=== PATIENT | male | born 1960 | race Caucasian/White ===

== ENCOUNTER 2016-04-16 12:53 | Emergency (ER) | payer BC ==
--- NOTE | 2016-04-16 13:00 | ER Document Report ---
ED Medical Screen (RME) - General Stated Complaint: FLU LIKE SYMPTOMS Mode of Arrival: Ambulatory Information source: Patient Notes: Pt presents with flu like symptoms, fever, vomiting. Reports same symptoms Tuesday and Tuesday, went away, returned today. Had flu vaccine. Works here at [employer] [employer] [facility]. - Related Data Allergies/Adverse Reactions: No Known Allergies Allergy (Verified 06/01/12 18:33) Past Medical History - Immunizations Immunizations up to date: Yes Hx Diphtheria, Pertussis, Tetanus Vaccination: Yes - pt does not know date
[2016-04-16 13:33] LABS: ABSOLUTE LYMPHOCYTES (AUTO) 0.8 10^3/uL (0.5-4.7); BASOPHILS % (AUTO) 0.2 % (0-2); EOSINOPHILS % (AUTO) 0.2 % (0-6); HEMATOCRIT 45.4 % (37.9-51.0); HEMOGLOBIN 14.6 g/dL (13.5-17.0); HGB HCT DIFFERENCE -1.6; LYMPHOCYTES % (AUTO) 7.7 % (13-45); MEAN CORPUSCULAR HEMOGLOBIN 30.8 pg (27.0-33.4); MEAN CORPUSCULAR HGB CONC 32.2 g/dL (32.0-36.0); MEAN CORPUSCULAR VOLUME 95 fl (80-97); MONOCYTES % (AUTO) 10.3 % (3-13); RED BLOOD COUNT 4.76 10^6/uL (4.35-5.55); RED CELL DISTRIBUTION WIDTH 13.3 % (11.5-14.0); SEGMENTED NEUTROPHILS % (AUTO) 81.6 % (42-78); WHITE BLOOD COUNT 9.8 10^3/uL (4.0-10.5)
[2016-04-16 13:39] LABS: APPEARANCE,URINE CLEAR; BILIRUBIN,URINE NEGATIVE (NEGATIVE); GLUCOSE, URINE NEGATIVE (NEGATIVE); KETONES,URINE NEGATIVE (NEGATIVE); LEUKOCYTE ESTERASE,URINE NEGATIVE (NEGATIVE); NITRITE,URINE NEGATIVE (NEGATIVE); PROTEIN,URINE NEGATIVE (NEGATIVE); URINE SPECIFIC GRAVITY 1.021; UROBILINOGEN,URINE NEGATIVE mg/dL (<2.0)
[2016-04-16 13:46] LABS: ALANINE AMINOTRANSFERASE 59 U/L (21-72); ALBUMIN 4.1 g/dL (3.5-5.0); ALKALINE PHOSPHATASE 69 U/L (38-126); ANION GAP 13 (5-19); ASPARTATE AMINO TRANSFERASE 55 U/L (17-59); BILIRUBIN,TOTAL 0.3 mg/dL (0.2-1.3); BLOOD UREA NITROGEN 13 mg/dL (7-20); CALCIUM 9.1 mg/dL (8.4-10.2); CARBON DIOXIDE 28 mmol/L (22-30); CHLORIDE 100 mmol/L (98-107); CREATININE RESULT 0.93 mg/dL (0.52-1.25); GLUCOSE 110 mg/dL (75-110); POTASSIUM 4.1 mmol/L (3.6-5.0); TOTAL PROTEIN 6.9 g/dL (6.3-8.2)
[2016-04-16] MEDS ORDERED: ONDANSETRON 4 MG TAB.RAPDIS PO ONE (14:14)
[2016-04-16 14:18] VITALS: BP 121/73
--- NOTE | 2016-04-16 14:21 | ER Document Report ---
[id number] SYMPTOMS Mode of Arrival: Ambulatory Notes: The patient is a 55-year-old male who presents with 2 weeks of intermittent fatigue, muscle aches and fever and 1 day of nausea. He received his flu shot this year. 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 He denies abdominal pain, vomiting, shortness of breath, chest pain, urinary symptoms or recent travel. TRAVEL OUTSIDE OF THE [place] IN LAST 30 DAYS: No - Related Data Allergies/Adverse Reactions: No Known Allergies Allergy (Verified 04/16/16 13:00) Past Medical History - General Information source: Patient - Social History Smoking Status: Never Smoker Chew tobacco use (# tins/day): No Frequency of alcohol use: Social Drug Abuse: None Family History: Reviewed & Not Pertinent Patient has suicidal ideation: No Patient has homicidal ideation: No Renal/ Medical History: Denies: Hx Peritoneal Dialysis - Immunizations Immunizations up to date: Yes Hx Diphtheria, Pertussis, Tetanus Vaccination: Yes - pt does not know date Review of Systems - Review of Systems Notes: REVIEW OF SYSTEMS: CONSTITUTIONAL: +fevers, +chills EENT: -eye pain, -difficulty swallowing, -nasal congestion CARDIOVASCULAR: -chest pain, -syncope. RESPIRATORY: +cough, +SOB GASTROINTESTINAL: -abdominal pain, +nausea, -vomiting, -diarrhea GENITOURINARY: -dysuria, -hematuria MUSCULOSKELETAL: -back pain, -neck pain SKIN: -rash or skin lesions. HEMATOLOGIC: -easy bruising or bleeding. LYMPHATIC: -swollen, enlarged glands. NEUROLOGICAL: -altered mental status or loss of consciousness, -headache, - neurologic symptoms PSYCHIATRIC: -anxiety, -depression. ALL OTHER SYSTEMS REVIEWED AND NEGATIVE. Physical Exam - Vital signs Vitals: Temp Pulse Resp Pulse Ox 99.5 F 98 18 95 04/16/16 13:55 04/16/16 13:55 04/16/16 13:55 04/16/16 13:55 - Notes Notes: PHYSICAL EXAMINATION: GENERAL: Well-appearing, well-nourished and in no acute distress. HEAD: Atraumatic, normocephalic. EYES: Pupils equal round and reactive to light, extraocular movements intact, sclera anicteric, conjunctiva are normal. ENT: nares patent, oropharynx clear without exudates. Moist mucous membranes. NECK: Normal range of motion, supple without lymphadenopathy LUNGS: Breath sounds clear to auscultation bilaterally and equal. No wheezes rales or rhonchi. HEART: Regular rate and rhythm without murmurs ABDOMEN: Soft, nontender, normoactive bowel sounds. No guarding, no rebound. No masses appreciated. EXTREMITIES: Normal range of motion, no pitting or edema. No cyanosis. NEUROLOGICAL: Cranial nerves grossly intact. Normal speech, normal gait. Normal sensory, motor, and reflex exams. PSYCH: Normal mood, normal affect. SKIN: Warm, Dry, normal turgor, no rashes or lesions noted. Course - Re-evaluation Re-evalutation: Patient's labs and vital signs appear unremarkable other than positive flu B. After Zofran, patient is tolerating liquid. Instructed patient to remain hydrated and follow-up with his primary care physician. Given strict return precautions and he understands. - Vital Signs Vital signs: Temp Pulse Resp BP Pulse Ox 99.5 F 88 18 121/73 97 04/16/16 14:15 04/16/16 14:15 04/16/16 13:55 04/16/16 14:15 04/16/16 14:15 - Laboratory Result Diagrams: 04/16/16 13:05 04/16/16 13:05 Laboratory results interpreted by me: 04/16/16 13:05 Seg Neutrophils % 81.6 H Lymphocytes % 7.7 L - Diagnostic Test Radiology reviewed: Image reviewed, Reports reviewed Radiology results interpreted by me: SYL Discharge - Discharge Clinical Impression: Influenza B Condition: Good Disposition: HOME, SELF-CARE Additional Instructions: INFLUENZA: The physician feels that you have influenza -- the "flu". Influenza is an infection caused by a virus. Symptoms include generalized aching, fever, headache, dry cough, and fatigue. Some patients with the flu also have nausea, vomiting, and diarrhea. The fever and aches usually last two to four days, with the cough persisting another one to two weeks. Treatment of the flu, for the most part, is simply treatment of symptoms. Rest, drink plenty of fluids, and use acetaminophen for fever and aches. Do not take aspirin. There is an anti-viral medication, called Tamiflu, which may help in "type A" flu, but it's not helpful in every case of flu, and only works if started within the first 24 - 48 hours of the start of symptoms. The physician will determine whether this medication can help you. To prevent spread of the virus, use good handwashing. Shared toys should be cleaned with disinfectant. Clean the toilets, sinks, and counter surfaces in bathrooms. Launder clothing in hot water. What are conditions that should receive medical attention? The development of difficulty breathing. Lip color changes to blue or purple. Persistent vomiting and unable to keep liquids down with signs of dehydration such as: dizziness when standing, unable to urinate, or if child/infant is crying no tears are noticed. Is less responsive than normal or becomes confused. How do I decrease the spread of flu in my home? Taking care of the sick patient at home: Keep the sick person in a room separate from the common areas of the house. Keep the "sickroom" door closed. If the person with the flu needs to leave the home, they should cover their nose/mouth when coughing or sneezing and wear a disposable (surgical) mask if available. These masks may be available at your local pharmacy, medical supply and hardware store. If the sick person is in common areas of the house, have them wear a surgical mask. If possible, have the sick person use a separate bathroom that should be cleaned daily with a household disinfectant. If you are the caregiver: Avoid being face to face with the sick adult person as much as possible. Try to stay at least 6 feet away and wear a disposable surgical mask when possible. When holding small children who are sick, place their chin on your shoulder so that they will not cough in your face. Wash your hands after you touch the sick person or handle their tissues and laundry. Wear a mask if you leave home, as you may be infected from taking care of someone and not know it yet. Watch yourself and others in the home for flu symptoms and contact your doctor if symptoms occur. NOTE: Antiviral medication used to reduce the symptoms of the flu works only if taken within 48 hours, and best within 24 hours of symptom onset. Household Cleaning, laundry and waste disposal: Tissues and other disposable items used by the sick person should be thrown away in the trash. Wash your hands after touching these used items. No special waste disposal is required. Keep surfaces (especially bedside tables, bathroom surfaces, and toys for children) clean by wiping them down with a safe household disinfectant according to the directions on the product label. Per Center for Disease Control advice, most people will not receive testing to confirm flu. Also based on the person's health history and onset of symptoms, not all patients will receive prescriptions for antiviral medications. If you have questions related to this, please ask your healthcare provider. For more information, you can call the Centers for Disease Control and Prevention ([facility]) Hotline at 5-318-WCZVputi This line is available in Beninese and Thai, 24 hours a day, 7 days a week. Or wwwP[employer] or www.cdc.gov Flu-Like Illness Home Instructions: The influenza virus infection can cause a wide rage of symptoms, including: Fever, cough, sore throat, body aches, headaches, chills, fatigue, with some patients reporting diarrhea and vomiting Like seasonal influenza A, H1N1 ("swine flu")in humans can vary in severity from mild to severe Severe illness with pneumonia, respiratory failure and even is possible Certain groups might be more likely to develop a severe illness from H1N1 infection. Sometimes bacterial infections may occur at the same time as or after infection with influenza viruses and lead to pneumonias, ear infections, or sinus infections. How Flu Spreads The main way that influenza viruses spread is through respiratory droplets of coughs and sneezes. This can happen when someone with the infection coughs or sneezes and the particles fly through the air and land on other people and surfaces. If the person covers their mouth and nose with their hand but does not wash their hands immediately, then these germs are passed onto the next object that they touch. People with Influenza A or suspected H1N1 (swine flu) who are cared for at home should: Check with their doctor about any special care that they might need if they are or have a health condition such as diabetes, heart disease, asthma or emphysema. Also, limit caregiver to one (if possible). women or those with chronic health conditions should not take care of the flu patient unless necessary. Check with their doctor about whether or not medications are needed that may lessen the symptoms of the flu. Stay at home until 24 hours fever free without the use of fever reducing medication. Get plenty of rest and avoid other healthy people in your home. Drink plenty of clear liquids to keep from getting dehydrated. Take medications like Tylenol (Acetaminophen), Advil/Motrin/Nuprin ( Ibuprofen) or Aleve (Naproxen) for fevers and aches. All children under the age of 18 years of age should not take aspirin or products containing aspirin (e.g. Pepto Bismol), as this can cause a rare serious illness called Yvan Syndrome. Over the counter medications for flu and colds may help, but it is very important to follow the package directions. Remember that the medicine may help the symptoms, but it will not help prevent others from getting sick if they are around you. Cover coughs and sneezes using your bent arm. Clean hands with soap and water or an alcohol-based hand rub often, especially after using tissues to cough or sneeze. Encourage hand washing frequently for all people living in the home! The sick person should not have visitors other than caregivers. Encourage concerned loved ones to call instead of visit. Avoid close contact with others-do not go to work or school while sick. USE OF ACETAMINOPHEN (Tylenol): Acetaminophen may be taken for pain relief or fever control. It's much safer than aspirin, offering a wider range of "safe" dosages. It is safe during . Some brand names are Tylenol, Panadol, Datril, Anacin 3, Tempra, and Liquiprin. Acetaminophen can be repeated every four hours. The following are maximum recommended dosages: WEIGHT Dose Drops Elixir Chewable( 80mg) (LBS.) drprs=droppers tsp=teaspoon 6 40 mg 0.4 ml (1/2) 6-11 80 mg 0.8 ml (full) tsp 1 tab 12-16 120 mg 1 1/2 drprs 3/4 tsp 1 1/2 tabs 17-23 160 mg 2 drprs 1 tsp 2 tabs 24-30 240 mg 3 drprs 1 1/2 tsp 3 tabs 30-35 320 mg 2 tsp 4 tabs 36-41 360 mg 2 1/4 tsp 4 1/2 tabs 42-47 400 mg 2 1/2 tsp 5 tabs 48-53 480 mg 3 tsp 6 tabs 54-59 520 mg 3 1/4 tsp 6 1/2 tabs 60-64 560 mg 3 1/2 tsp 7 tabs 65-70 600 mg 3 3/4 tsp 7 1/2 tabs 71-76 640 mg 4 tsp 8 tabs 77-82 720 mg 4 1/2 tsp 9 tabs 83-88 800 mg 5 tsp 10 tabs >89 pounds or adults 650 mg to 900 mg Acetaminophen can be repeated every four hours. Maximum dose not to exceed 4000 mg a day. These maximum recommended dosages are slightly higher than the dosages written on the product container, but these dosages are very safe and below the toxic dosage for acetaminophen. FOLLOW-UP CARE: If you have been referred to a physician for follow-up care, call the physician s office for an appointment as you were instructed or within the next two days. If you experience worsening or a significant change in your symptoms, notify the physician immediately or return to the Emergency Department at any time for re-evaluation. Prescriptions: Ondansetron [Zofran Odt 4 mg Tablet] 1 - 2 tab PO Q4H PRN #15 tab.rapdis PRN Reason: For Nausea/Vomiting Forms: Return to Work
== END 2016-04-16 14:45 | disposition home or self-care (01) ==
LOC: ER 12:53
DX: J11.1 Influenza due to unidentified influenza virus with other respiratory manifestations (principal); R53.83 Other fatigue; R52 Pain, unspecified; R50.9 Fever, unspecified
CPT/HCPCS: 99283; 36415; 85025; 80053; 81001; 87804; 71020; S0119

== ENCOUNTER 2017-01-13 02:22 | Emergency (ER) | payer BC ==
--- NOTE | 2017-01-13 03:19 | ER Document Report ---
ED General - General Chief Complaint: Eye Injury Stated Complaint: EYE PAIN Time Seen by Provider: 01/13/17 03:15 Notes: Patient is a 56-year-old male who presents with pain, photophobia, and seeing blood-tinged vision out of his left eye. Patient went camping this weekend and the bungee cord came back and hit him in the left eye. He denies any other injuries. He has had small amount of dizziness. He otherwise feels well. No history of surgeries to the left eye. He wears reading glasses. He does not wear contacts. TRAVEL OUTSIDE OF THE [place] IN LAST 30 DAYS: No - Related Data Allergies/Adverse Reactions: No Known Allergies Allergy (Verified 04/16/16 13:00) Past Medical History - Social History Smoking Status: Never Smoker Frequency of alcohol use: Rare Drug Abuse: None Family History: Reviewed & Not Pertinent Patient has suicidal ideation: No Patient has homicidal ideation: No Renal/ Medical History: Denies: Hx Peritoneal Dialysis - Immunizations Immunizations up to date: Yes Hx Diphtheria, Pertussis, Tetanus Vaccination: Yes - pt does not know date Review of Systems - Review of Systems Notes: My Normal Review Basic REVIEW OF SYSTEMS: CONSTITUTIONAL : Denies fever, chills, or sweats. Denies recent illness. EENT: Left eye pain. NEUROLOGICAL: slight headache. ALL OTHER SYSTEMS REVIEWED AND NEGATIVE. Physical Exam - Vital signs Vitals: Temp Pulse Resp BP Pulse Ox 97.9 F 77 16 120/72 96 01/13/17 02:30 01/13/17 02:30 01/13/17 02:30 01/13/17 02:30 01/13/17 02:30 - Notes Notes: General Appearance: Well nourished, alert, cooperative, no acute distress, mild obvious discomfort. Vitals: reviewed, See vital signs table. Head: no swelling or tenderness to the head Eyes: PERRL, EOMI, Conjuctiva clear. Patient's has a 40% hyphema in the left eye. Hyphema reaches to the base of the pupil. No fluorescein uptake. No pain with extraocular motion. Patient does have photophobia on exam. Bedside ultrasound shows no evidence of retinal detachment. Neuro: speech clear, oriented x 3, normal affect, responds appropriately to questions. Course - Re-evaluation Re-evalutation: 01/13/17 03:[address] Lilly, railroad brake operator government operations consultant, and discussed the finding of the hyphema with him. He recommends that we place patient erythromycin ointment and he will evaluate the patient today in his office. He requests that the patient because office at 8 AM this morning and he will get him into the office. He recommends patient states sitting up when sleeping. He recommends for the patient not to lay flat. I did explain this to the patient. Patient agrees with plan and will be discharged home follow-up closely with railroad brake operator. Patient was given meclizine and Zofran because he does have some dizziness and nausea after hit himself in the eye. Dictation of this chart was performed using voice recognition software; therefore, there may be some unintended grammatical errors. - Vital Signs Vital signs: Temp Pulse Resp BP Pulse Ox 97.9 F 77 16 120/72 96 01/13/17 02:30 01/13/17 02:30 01/13/17 02:30 01/13/17 02:30 01/13/17 02:30 Discharge - Discharge Clinical Impression: Hyphema, left eye Condition: Good Disposition: HOME, SELF-CARE Additional Instructions: Please call the ophthamologist (Dr. Lilly) at 8am. Tell the office that you were seen in the ER and your case was discussed with Dr. Lilly who wants to see you today. Please use the Erythromycin ointment as a thin ribbon on your eye 6 times a day. Please return to the ER if you have intractable vomiting or feel unwell. Please do not lay flat and try to sleep sitting up. Prescriptions: Meclizine HCl 25 mg PO TID PRN #20 tablet PRN Reason: dizziness Ondansetron [Zofran Odt 4 mg Tablet] 1 tab PO Q4H PRN #15 tab.rapdis PRN Reason: For Nausea/Vomiting Forms: Return to Work Referrals: KULWANT LILLY DO [ACTIVE STAFF] - 01/13/17
[2017-01-13] MEDS ORDERED: ERYTHROMYCIN 0.5% OPH OINTMENT 3.5 GM TUBE OD ONE (03:23)
[2017-01-13] MEDS ORDERED: ONDANSETRON 4 MG TAB.RAPDIS PO ONE (03:30)
[2017-01-13] MEDS ORDERED: MECLIZINE HCL 25 MG TABLET PO ONE (03:30)
[2017-01-13] MEDS ORDERED: ONDANSETRON ODT 4 MG TAB (6 TAB/DSPK) PO PRN (03:31)
[2017-01-13] MEDS ORDERED: ERYTHROMYCIN 0.5% OPH OINT 1 GM UNIT DOSE OS ONE (03:41)
[2017-01-13 03:49] VITALS: BP 144/90
== END 2017-01-13 03:54 | disposition home or self-care (01) ==
LOC: ER 02:22
DX: S05.12XA Contusion of eyeball and orbital tissues, left eye, initial encounter (principal); H53.142 Visual discomfort, left eye; W20.8XXA Other cause of strike by thrown, projected or falling object, initial encounter; Y93.89 Activity, other specified; Y92.828 Other wilderness area as the place of occurrence of the external cause; R42 Dizziness and giddiness; R51 Headache
CPT/HCPCS: 99283; S0119; J3490

== ENCOUNTER → 2017-09-05 | Outpatient (CLI) | payer BC ==
--- NOTE | 2017-09-05 16:14 | RADIOLOGY REPORT (SQ) ---
EXAM DESCRIPTION: CT CHEST WITHOUT COMPLETED DATE/TIME: 09/05/2017 3:51 pm REASON FOR STUDY: DYSPNEA/ASBESTOS EXPOSURE COMPARISON: 02/14/2013. TECHNIQUE: CT scan performed of the chest without intravenous contrast. Images reviewed with lung, soft tissue and bone windows. Reconstructed coronal and sagittal MPR images reviewed. All images st ored on PACS. All CT scanners at this facility use dose modulation, iterative reconstruction, and/or weight based d osing when appropriate to reduce radiation dose to as low as reasonably achievable (ALARA). [facility]: Dose Right [facility]: CareDose [facility]: Dose Right [facility]: Teradose 4D [facility]: [employer] RADIATION DOSE: CT Rad equipment meets quality standard of care and radiation dose reduction techniq ues were employed. CTDIvol: 9.5 mGy. DLP: 435 mGy-cm. mGy. LIMITATIONS: No technical limitations. FINDINGS: LUNGS AND PLEURA: No masses, infiltrates, pneumothorax. No pleural effusions, calcificati ons. HILAR AND MEDIASTINAL STRUCTURES: No identified masses or abnormal nodes. No obvious aneurysm. HEART AND VASCULAR STRUCTURES: No aneurysm. No pericardial effusion. UPPER ABDOMEN: No significant findings. Limited exam. THYROID AND OTHER SOFT TISSUES: No masses. No adenopathy. BONES: No significant finding. HARDWARE: Stable tiny metallic shrapnel fragment in the anterior left upper lobe. OTHER: No other significant findings. IMPRESSION: NO SIGNIFICANT FINDING ON NON-CONTRASTED CHEST CT. STABLE TINY METALLIC SHRAPNEL FRAGME NT IN THE ANTERIOR LEFT UPPER LOBE. TECHNICAL DOCUMENTATION: JOB ID: [id number] Quality ID # [id number]: Final reports with documentation of one or more dose reduction techniques (e.g., Au tomated exposure control, adjustment of the mA and/or kV according to patient size, use of iterative reconstruction technique) 2010 [employer]- All Rights Reserved Reading location - IP/workstation name: [email or web address]
== END ==
LOC: RAD 15:30
PROVIDERS: ATTEND Internal Medicine Pulmonary Disease
DX: R06.00 Dyspnea, unspecified (principal); Z77.090 Contact with and (suspected) exposure to asbestos
CPT/HCPCS: 71250

== ENCOUNTER → 2017-09-14 | Outpatient (CLI) | payer BC ==
[~2017-09-14] MED LIST: ALBUTEROL SULFATE 0.083% NEB 2.5 MG/3 ML AMPUL NEB ONE
--- NOTE | 2017-09-15 15:27 | Pulmonary Function Test ---
Pulmonary Function Test Date of Procedure:: 09/15/17 INDICATION:: Dyspnea Referring Provider: Dr. Miguel Smith Carpenter Prototype: Dafne Sheikh FISH NET MAKER, TUBE MACHINE OPERATOR - Report Spirometry: FVC 4.56 L 85% postbronchodilator 4.91 L 91% FEV1 3.93 L 91% postbronchodilator 4.09 L 95% FEV1/FVC % 86 postbronchodilator therapy 83 predicted 79 FEF 25-75% 4.67 L 109% postbronchodilator therapy 4.83 L 112% Total lung capacity 6.11 L 80% Vital capacity 5.32 L 99% Inspiratory capacity 2.38 L FRC in 2 3.73 L 89% ERV 1.51 L RV 0.78 L 30% RV/TLC % 13 predicted 36 DLCO 27.1 99% DLCO/VA 5.10 129% Lung Volume: Total lung capacity 6.11 L 80% Vital capacity 5.32 L 99% Inspiratory capacity 2.38 L FRC in 2 3.73 L 89% ERV 1.51 L RV 0.78 L 30% RV/TLC % 13 predicted 36 Diffusion Capactity: DLCO 27.1 99% DLCO/VA 5.10 129% Impression: No obstructive ventilatory defect. No restrictive ventilatory defect. No hyperinflation or air trapping. Normal diffusion capacity.
== END ==
LOC: RT 12:14
PROVIDERS: ATTEND Internal Medicine Pulmonary Disease
DX: Z77.090 Contact with and (suspected) exposure to asbestos (principal); R06.00 Dyspnea, unspecified
CPT/HCPCS: 94060; 94727; 94729; 94760

== ENCOUNTER → 2018-01-31 | Outpatient (CLI) | payer BC ==
--- NOTE | 2018-01-31 09:37 | RADIOLOGY REPORT (SQ) ---
EXAM DESCRIPTION: COOKIE SWALLOW COMPLETED DATE/TIME: 01/31/2018 8:27 am REASON FOR STUDY: COUGH (R05) R05 COUGH gastroesophageal reflux to the oropharynx with aspiration COMPARISON: None. TECHNIQUE: Videofluoroscopic swallowing examination was performed in conjunction with speech patholo gy. Videofluoroscopic imaging was obtained and reviewed and these are the findings: RADIATION DOSE: 1 minutes 6 seconds of fluoroscopy was used. 1 images saved to PACS. LIMITATIONS: None FINDINGS: The patient was brought into the fluoro room and placed upright on a modified barium swall ow chair. The patient was then given multiple consistencies mixed with barium to swallow under live fluoroscopic video guidance. According to the Speech Pathologist there was trace laryngeal penetrati on with thin liquids. Minimal post swallow residual contrast within the Piriforms. Cricopharyngeal hypertrophy. IMPRESSION: TRACE LARYNGEAL PENETRATION WITH THIN LIQUIDS. NO ASPIRATION SEEN.PLEASE SEE SPEECH PAT HOLOGIST REPORT FOR OTHER FINDINGS AND RECOMMENDATIONS. COMMENT: Quality ID [id number]: Final reports for procedures using fluoroscopy that document radiation exp osure indices, or exposure time and number of fluorographic images (if radiation exposure indices are not available) TECHNICAL DOCUMENTATION: JOB ID: [id number] [employer]- All Rights Reserved Reading location - IP/workstation name: [email or web address] [id number]
--- NOTE | 2018-01-31 09:55 | ST Modified Barium Swallow ---
Recommendation - Recommendations Recommendations: No diet change recommendations, no skilled intervention indicated. Functional oral and pharyngeal phase swallow seen, mildly reduced UES opening. Medical Diagnoses - Medical Diagnoses Medical Diagnosis Description & ICD-10 Code(s): cough R05, dysphagia R13.10 Other Medical Diagnoses/Co-Morbidities: per patient report: reflux, "borderline COPD" ST Modified Barium Swallow - General Date: 01/31/18 Referring Physician: Dr. Smith Risks/Precautions: None Date of Onset: 01/02/15 - approximate onset date Reason for Referral: cough - History History obtained from: Patient -: Medical - Patient reports difficulty, predominately at night, with occasional aspiration. Patient feels that this is due to reflux and aspiration of gastric contents. The patient states that this has been going on for 3-4 years, but has worsened. When asked how long he noticed the worsening of symptoms, patient states "a couple of years". Patient also reports sensation of "smothering" at night occasionally, but does not report these issues at meals or when swallowing. Medications: per patient report: ropinorole, PPI Allergies: none reported - Functional Status Prior Functional Status: INDEPENDENT: feeding - independent Current Functional Limitations: feeding - independent - Subjective Patient/caregiver goal(s): r/o aspiration Cognitive-Linguistic Function: WNL Speech Intelligibility: WNL Current Nutritional Means: PO Current PO diet: Regular Current symptoms: Coughing Pain: Patient reports, 0/5 - Objective Assessment: Upright, Left Lateral - Food Trials Used Food trials used: Thin liquids, Pureed, Regular The patient: Was Able to Self Feed - Assessment Oral prep: Normal Labial closure: Adequate Leakage: None Mastication: Adequate Lingual Movement: Normal Oral stage: Normal for this Procedure Oral Stage: Difficulty propelling mercedes cracker bolus without liquid wash. - Pharyngeal Stage Initiation of Pharyngeal Stage Reflex: Normal Decreased laryngeal elevation: No Reduced Velopharyngeal Closure: no Reduced pressure generation: No reduced tongue-based retraction: No Pre-swallow pooling in valleculae: None Pre-Swallow pooling in pyriforms: None Reduced Thyro-Hyoid approximation: No Reduced epiglottic excursion: No Reduced pharyngeal peristalsis/contraction: No Post-swallow residulas vallecular: None Post-Swallow residuals in pyriforms: Mild Reduced Cricopharyngeal opening: Yes - mild, causing some retrograde movement of material into pyriform sinus. Cleared with liquid wash. - Fall Risk Assessment Medications/Conditions that increase fall risks include: Antidepressants, sedatives, anti-arrhythmic, diuretic, benzodiazipenes, neuroleptics. BP regulation problems, cardiac problems, balance or gait deficits, neurological problems. Fall Risk Actions Taken: No action needed - Behavioral Observations During evaluation process patient: was pleasant, was cooperative, provided medical history - Treatment / Educational Needs: Treatment/Education Needs: Treatment consisted of patient education on the role of the Speech Pathologist. Patient's plan of care and golas were communicated as well as scheduling and attendance policies. Recommendations for initial home program were shared. Patient demonstrated understanding and verbalized agreement. - Impression/Summary Laryngeal Penetration: No Tracheal Aspiration: no Patient presents with: Normal swallow at eval Risk of Aspiration: Minimal Evaluation and Findings: Minimal risk of aspiration during swallowing. Due to the nature of symptoms, may benefit from additional follow up with GI. - Recommendations Solid diet recommendations: Regular Liquid Diet Modification: Thin Pt/Family education and followup with MD: Yes Dysphagia therapy with DRIVER'S EDUCATION INSTRUCTOR: no Reflux Precautions: Taught to Patient Recommended techniques: Fully Upright During Meal, Alternate Bites/Sips Information, Precautions and Recommendations: Patient (Written), Patient (Verbal ) - Time Total Time: 20 - Plan of Care Strategies to optimize patient understanding include:: ongoing assessment of educational needs, implementation of educational strategies, and re-education. - - -: Thank you for the opportunity to work with this patient and his/her family. Should you have any questions about this patient's plan or progress, I can be reached at [phone]. Charge G Code? - - -: No
== END ==
LOC: RAD 07:34
PROVIDERS: ATTEND Internal Medicine Pulmonary Disease
DX: R05 Cough (principal); R13.10 Dysphagia, unspecified
CPT/HCPCS: 74230

== ENCOUNTER 2018-04-18 15:09 | Day surgery (SDC) | payer BC ==
[2018-04-18] MEDS ORDERED: DIPHENHYDRAMINE HCL 50 MG/ML VIAL ONE (15:32)
[2018-04-18] MEDS ORDERED: FLUMAZENIL INJ 0.5 MG/5 ML VIAL ONE (15:32)
[2018-04-18] MEDS ORDERED: FENTANYL CITRATE INJ/PF 100 MCG/2 ML AMPUL ONE (15:32)
[2018-04-18] MEDS ORDERED: ONDANSETRON HCL INJ/PF 4 MG/2 ML SDV ONE (15:32)
[2018-04-18] MEDS ORDERED: NALOXONE HCL INJ/PF 0.4 MG/1 ML SDV ONE (15:32)
[2018-04-18] MEDS ORDERED: GLUCAGON,HUMAN RECOMB 1 MG INJ ONE (15:33)
[2018-04-18] MEDS ORDERED: EPINEPHRINE INJ 1 MG/10 ML DISP.SYRIN ONE (15:33)
[2018-04-18] MEDS: MIDAZOLAM 2 MG/2 ML INJ ONE ×3 (15:55→16:01)
--- NOTE | 2018-04-18 16:35 | Operative Report ---
Operative Report DATE OF SURGERY: 04/18/18 Operative Report: Pre-op diagnosis: Reflux and colon cancer screening Post-op diagnosis: 1. Grade C esophagitis 2. 3 cm hiatal hernia 3. Esophageal stricture 4. Left-sided diverticulosis 5. Large internal hemorrhoids Surgery: Upper endoscopy with biopsy and Colonoscopy Medications: Versed 5mg, Fentanyl 100mcg IV push Tissue removed: Antral and gastric body biopsy Procedure: After informed consent obtained from patient, patient's pharynx was sprayed with Hurricane and conscious sedation was achieved. The upper endoscope was then inserted into the esophagus under direct vision and advanced into the stomach and further into the duodenum. Detailed examination of the duodenum, stomach and the esophagus was then performed. A digital rectal examination was performed and this was unremarkable. The colonoscope was inserted into the rectum and advanced to the cecum. The appendiceal orifice and the terminal ileum were both identified. The mucosa was examined into details as the colonoscope was slowly pulled out of the patient. The endoscope was retroflexed in the rectum. Patient tolerated the procedure well. Findings Esophagus: Multiple erosions involving less than 75% of the GE junction circumference. There was some stenosis. A 3 cm hernia was noted with the Z line at 40 cm. Stomach: Normal Duodenum: Normal Cecum: Normal Ascending colon: Normal Transverse colon: Normal Descending colon: Few diverticuli Sigmoid colon: Few diverticula Rectum: Normal except for large internal hemorrhoids Plan: We will change his Pepcid to a PPI. Follow-up colonoscopy in 10 years OPERATION: .
[2018-04-18 17:25] VITALS: BP 108/73
== END 2018-04-18 17:30 | disposition home or self-care (01) ==
LOC: END 15:09
PROVIDERS: ATTEND Internal Medicine Gastroenterology
DX: Z12.11 Encounter for screening for malignant neoplasm of colon (principal); K57.30 Diverticulosis of large intestine without perforation or abscess without bleeding; K64.8 Other hemorrhoids; K29.50 Unspecified chronic gastritis without bleeding; K22.2 Esophageal obstruction; K21.0 Gastro-esophageal reflux disease with esophagitis; K44.9 Diaphragmatic hernia without obstruction or gangrene
CPT/HCPCS: 43239; 45378; 88342 ×2; 88305 ×2; J2250; J3010; J0171; J1200; J1610; J2310; J2405; J3490

== ENCOUNTER → 2018-06-16 | Outpatient (CLI) | payer BC ==
--- NOTE | 2018-06-16 12:43 | RADIOLOGY REPORT (SQ) ---
EXAM DESCRIPTION: MRI HEAD WITHOUT COMPLETED DATE/TIME: 06/16/2018 11:40 am REASON FOR STUDY: ABN VISION (H53.9), HEADACHE (R51) R51 HEADACHE H53.9 UNSPECIFIED VISUAL DISTURB ANCE COMPARISON: None. TECHNIQUE: Multiplanar imaging includes non-contrasted T1, T2, FLAIR, and diffusion with ADC map seq uences. Images stored on PACS. LIMITATIONS: None. FINDINGS: ANATOMY: No anomalies. Normal vascular flow voids. Pituitary fossa normal. CSF SPACES: Normal in size and contour. No hemorrhage. CEREBRUM: Sulci and gyri normal in size and contour. Normal white matter signal on FLAIR imaging. No evidence of hemorrhage, mass, or extraaxial fluid collection. POSTERIOR FOSSA: No signal alteration. No hemorrhage. No edema, masses or mass effect. Internal luh tory canals, cerebello-pontine angles, mastoids normal. DIFFUSION IMAGING: Negative for acute or sub-acute infarction. ORBITS: No masses. Globes normal. PARANASAL SINUSES: No fluid levels. Mucosa normal. OTHER: No other significant finding. IMPRESSION: NORMAL MRI OF THE BRAIN WITHOUT INTRAVENOUS GADOLINIUM CONTRAST. EVIDENCE OF ACUTE STROKE: NO. TECHNICAL DOCUMENTATION: JOB ID: [id number] [employer]- All Rights Reserved Reading location - IP/workstation name: [email or web address]
== END ==
LOC: RAD 11:01
PROVIDERS: ATTEND Psychiatry & Neurology Neurology
DX: R51 Headache (principal); H53.9 Unspecified visual disturbance
CPT/HCPCS: 70551

== ENCOUNTER 2018-06-27 15:23 | Day surgery (SDC) | payer BC ==
[2018-06-27] MEDS ORDERED: NALOXONE HCL INJ/PF 0.4 MG/1 ML SDV ONE (16:24)
[2018-06-27] MEDS ORDERED: DIPHENHYDRAMINE HCL 50 MG/ML VIAL ONE (16:24)
[2018-06-27] MEDS ORDERED: FENTANYL CITRATE INJ/PF 100 MCG/2 ML AMPUL ONE (16:24)
[2018-06-27] MEDS ORDERED: ONDANSETRON HCL INJ/PF 4 MG/2 ML SDV ONE (16:24)
[2018-06-27] MEDS ORDERED: FLUMAZENIL INJ 0.5 MG/5 ML VIAL ONE (16:24)
[2018-06-27] MEDS ORDERED: EPINEPHRINE INJ 1 MG/10 ML DISP.SYRIN ONE (16:25)
[2018-06-27] MEDS ORDERED: GLUCAGON,HUMAN RECOMB 1 MG INJ ONE (16:25)
[2018-06-27] MEDS: MIDAZOLAM 2 MG/2 ML INJ ONE ×2 (17:00→17:05)
--- NOTE | 2018-06-27 17:20 | Operative Report ---
Operative Report DATE OF SURGERY: 06/27/18 Operative Report: Pre-op diagnosis: History of severe esophagitis and esophageal stricture Post-op diagnosis: 1. Grade D esophagitis 2. 3 cm hiatal hernia 3. Esophageal stricture Surgery: Esophagogastroduodenoscopy with biopsy Medications: Versed 4mg Fentanyl 100mcg IV push Tissue removed: Antral biopsy for pathology Procedure: After informed consent obtained from patient, the throat was sprayed with Hurricane and conscious sedation was achieved. The upper endoscope was inserted into the esophagus under direct vision and advanced into the stomach. The duodenum was entered and examined to the second part. Endoscope was then slowly pulled out of the patient as the mucosa was examined into details. Patient tolerated procedure well. Findings Esophagus: Near circumferential ulceration at the Z line with some stenosis at 39 cm. There is a 3 cm hernia with the top of the gastric fold at 42 cm. Antrum: Normal Body: Normal Fundus: Normal Duodenum first part: Normal Duodenum second part: Normal Plan: Await pathology. Omeprazole 20 mg twice daily and consider repeating EGD later on with dilation. He will also follow-up with Dr. Fonseca to be considered for fundoplication and hernia repair OPERATION: .
[2018-06-27 18:32] VITALS: BP 101/71
== END 2018-06-27 18:15 | disposition home or self-care (01) ==
LOC: END 15:23
PROVIDERS: ATTEND Internal Medicine Gastroenterology
DX: K21.0 Gastro-esophageal reflux disease with esophagitis (principal); K44.9 Diaphragmatic hernia without obstruction or gangrene; K22.2 Esophageal obstruction; K29.50 Unspecified chronic gastritis without bleeding; Z79.899 Other long term (current) drug therapy
CPT/HCPCS: 43239; 88342 ×2; 88305 ×2; J2250; J3010; J0171; J1200; J1610; J2310; J2405; J3490

== ENCOUNTER → 2018-07-10 | Outpatient (CLI) | payer BC ==
--- NOTE | 2018-07-10 12:47 | RADIOLOGY REPORT (SQ) ---
EXAM DESCRIPTION: BARIUM SWALLOW ESOPHAGUS COMPLETED DATE/TIME: 07/10/2018 10:14 am REASON FOR STUDY: HEARTBURN,GASTRIC ULCER, UNSP ACUTE OR CHRONIC, K25.9 GASTRIC ULCER, UNSP A CUTE OR CHRONIC, W/O HEMOR OR R12 HEARTBURN COMPARISON: CT chest 09/05/2017 TECHNIQUE: Under fluoroscopic guidance, patient ingested effervescent granules followed by thick and thin barium. Fluoroscopic spot images and routine radiographic images acquired and stored on PACS. 12 MM BARIUM TABLET GIVEN: Yes. No significant delay in passage. LIMITATIONS: None. FLUOROSCOPY TIME: FLUORO TIME: 1.2 minutes 8 series of digital images saved to PACS. FINDINGS: NEUROMUSCULAR COORDINATION OF SWALLOW: Normal. No aspiration. Mildly prominent cricophary ngeal is impression on the esophagus ESOPHAGEAL MOTILITY: Normal peristalsis. Occasional tertiary contractions. No esophageal spasm. ESOPHAGEAL MUCOSA: There is a small persistent ulcer at the GE junction. Remainder of esophageal muc dilia grossly unremarkable GASTRO-ESOPHAGEAL JUNCTION: Small sliding hiatal hernias. There is a distal esophageal stricture at the GE junction with a small ulceration. This did not impede passage of the 12 mm barium tablet. Un provoked gastroesophageal reflux to the cervical esophagus occurred throughout the study. NON-GI TRACT STRUCTURES: Bilateral C5-6 moderate foraminal narrowing. OTHER: No other significant finding. IMPRESSION: Sliding hiatal hernia with distal esophageal stricture which does not impede passage of the 12 mm barium tablet. Subcentimeter ulceration at the GE junction. Unprovoked gastroesophageal reflux to the cervical esophagus. Prominent cricopharyngeal is impressio n on the upper esophagus during swallowing. Occasional tertiary contractions of the esophagus COMMENT: Quality ID 145: Final reports for procedures using fluoroscopy that document radiation exp osure indices, or exposure time and number of fluorographic images (if radiation exposure indices are not available) TECHNICAL DOCUMENTATION: JOB ID: [id number] [employer]- All Rights Reserved Reading location - IP/workstation name: [email or web address]
== END ==
LOC: RAD 09:20
PROVIDERS: ATTEND Surgery
DX: K25.9 Gastric ulcer, unspecified as acute or chronic, without hemorrhage or perforation (principal); R12 Heartburn
CPT/HCPCS: 74220

== ENCOUNTER → 2018-07-13 | Day surgery (SDC) | payer BC ==
[~2018-07-13] MED LIST changes: -ALBUTEROL SULFATE 0.083% NEB 2.5 MG/3 ML AMPUL NEB ONE; +LIDOCAINE 2% JELLY 5 ML TUBE ONE
== END ==
LOC: END 09:07
PROVIDERS: ATTEND Surgery
DX: K44.9 Diaphragmatic hernia without obstruction or gangrene (principal); K21.9 Gastro-esophageal reflux disease without esophagitis
CPT/HCPCS: 91010

== ENCOUNTER → 2018-07-17 | Outpatient (CLI) | payer BC ==
--- NOTE | 2018-07-17 09:55 | RADIOLOGY REPORT (SQ) ---
EXAM DESCRIPTION: CHEST PA/LATERAL COMPLETED DATE/TIME: 07/17/2018 9:38 am REASON FOR STUDY: COPD COMPARISON: 04/16/2006 EXAM PARAMETERS: NUMBER OF VIEWS: two views TECHNIQUE: Digital Frontal and Lateral radiographic views of the chest acquired. RADIATION DOSE: NA LIMITATIONS: none FINDINGS: LUNGS AND PLEURA: No opacities, masses or pneumothorax. No pleural effusion. MEDIASTINUM AND HILAR STRUCTURES: No masses or contour abnormalities. HEART AND VASCULAR STRUCTURES: Heart normal size. No evidence for failure. BONES: No acute findings. HARDWARE: Very small metallic fragment medial left upper lobe, stable finding. OTHER: No other significant finding. IMPRESSION: 1. No significant interval changes since the prior examination dated 02/04/2007. No acu te findings. TECHNICAL DOCUMENTATION: JOB ID: [id number] [employer]- All Rights Reserved Reading location - IP/workstation name: [email or web address]
[2018-07-17 10:04] LABS: HEMATOCRIT 42.6 % (37.9-51.0); HEMOGLOBIN 14.9 g/dL (13.5-17.0); MEAN CORPUSCULAR HEMOGLOBIN 32.7 pg (27.0-33.4); MEAN CORPUSCULAR HGB CONC 34.9 g/dL (32.0-36.0); MEAN CORPUSCULAR VOLUME 94 fl (80-97); PLATELET COUNT 257 10^3/uL (150-450); RED BLOOD COUNT 4.55 10^6/uL (4.35-5.55); RED CELL DISTRIBUTION WIDTH 13.1 % (11.5-14.0); WHITE BLOOD COUNT 4.8 10^3/uL (4.0-10.5)
[2018-07-17 10:30] LABS: ANION GAP 12 (5-19); BLOOD UREA NITROGEN 17 mg/dL (7-20); CALCIUM 9.9 mg/dL (8.4-10.2); CARBON DIOXIDE 25 mmol/L (22-30); CHLORIDE 104 mmol/L (98-107); GLUCOSE 90 mg/dL (75-110); SODIUM 140.6 mmol/L (137-145)
[2018-07-17 10:31] LABS: POTASSIUM 4.2 mmol/L (3.6-5.0)
--- NOTE | 2018-07-17 20:04 | EKG REPORT ---
SEVERITY:- NORMAL ECG - SINUS RHYTHM : Confirmed by: Nelda Art MD 17-Jul-2018 20:04:14
== END ==
LOC: OD 08:53
PROVIDERS: ATTEND Surgery
DX: Z01.810 Encounter for preprocedural cardiovascular examination (principal); Z01.818 Encounter for other preprocedural examination; K44.9 Diaphragmatic hernia without obstruction or gangrene; K21.0 Gastro-esophageal reflux disease with esophagitis; K27.9 Peptic ulcer, site unspecified, unspecified as acute or chronic, without hemorrhage or perforation; G43.909 Migraine, unspecified, not intractable, without status migrainosus
CPT/HCPCS: 36415; 71046; 80048; 85027; 93005; 93010

== ENCOUNTER 2018-08-11 05:34 | Observation (INO) | payer BC ==
[~2018-08-11 05:34] MED LIST changes: +CEFOXITIN SODIUM 2 GM in DEXTROSE 5%-WATER 100 ML IV PRN; +LACTATED RINGERS 1000 ML IV PRN; +LIDOCAINE 0.5% INJ-PF (5 MG/ML) 50 ML SDV SUBCUT PRN; -LIDOCAINE 2% JELLY 5 ML TUBE ONE
[2018-08-11] MEDS ORDERED: ALBUTEROL SULFATE 0.083% NEB 2.5 MG/3 ML AMPUL NEB ONE ×2 (06:10→06:30)
[2018-08-11] MEDS ORDERED: ONDANSETRON HCL INJ/PF 4 MG/2 ML SDV ONE (06:41)
[2018-08-11] MEDS ORDERED: KETAMINE HCL INJ 500 MG/10 ML VIAL ONE (06:41)
[2018-08-11] MEDS ORDERED: PROPOFOL INJ 200 MG/20 ML VIAL IV ONE ×2 (06:41→06:42)
[2018-08-11] MEDS ORDERED: DEXAMETHASONE SOD PHOSPHATE INJ 4 MG/1 ML VIAL ONE (06:41)
[2018-08-11] MEDS ORDERED: MIDAZOLAM 2 MG/2 ML INJ ONE (06:41)
[2018-08-11] MEDS ORDERED: FENTANYL CITRATE INJ/PF 250 MCG/5 ML AMPULE ONE (06:41)
[2018-08-11] MEDS ORDERED: LIDOCAINE 2% INJ-PF (100 MG/5 ML) SYRINGE ONE ×2 (06:42→09:52)
[2018-08-11] MEDS ORDERED: BUPIVACAINE HCL 0.25 % INJ/PF (2.5 MG/1 ML) 30 ML VIAL ONE (07:24)
[2018-08-11] MEDS ORDERED: FENTANYL CITRATE INJ/PF 100 MCG/2 ML AMPUL IV PRN ×3 (08:46)
[2018-08-11] MEDS ORDERED: MORPHINE SULFATE 10 MG/ML INJ IV PRN (08:46)
[2018-08-11] MEDS ORDERED: PROMETHAZINE HCL INJ 25 MG/1 ML VIAL IV PRN ×2 (08:46)
[2018-08-11] MEDS ORDERED: DIPHENHYDRAMINE HCL 50 MG/ML VIAL IV PRN (08:46)
[2018-08-11] MEDS ORDERED: MEPERIDINE HCL/PF INJ 25 MG/1 ML DISP.SYRIN IV PRN (08:46)
[2018-08-11] MEDS ORDERED: GLYCOPYRROLATE 1 MG/5 ML SYRINGE ONE (11:32)
[2018-08-11] MEDS ORDERED: SUCCINYLCHOLINE CHLORIDE INJ 200 MG/10 ML VIAL ONE (11:32)
[2018-08-11] MEDS ORDERED: ROCURONIUM BROMIDE INJ 50 MG/5 ML VIAL IV ONE (11:32)
[2018-08-11] MEDS ORDERED: NEOSTIGMINE METHYLSULFATE 10 MG/10 ML VIAL ONE (11:32)
[2018-08-11] MEDS ORDERED: ACETAMINOPHEN 1,000 MG/100 ML RTUPB IV ONE (11:53)
[2018-08-11] MEDS ORDERED: ONDANSETRON HCL INJ/PF 4 MG/2 ML SDV IV PRN (12:24)
[2018-08-11] MEDS: SUCRALFATE 1 GM TABLET PO SCH ×2 (16:07→21:05)
[2018-08-11] MEDS: HYDROCOD/ACETAMIN 7.5-325 MG/15 ML ORAL SOLN UDCUP PO PRN ×2 (16:13→20:55)
[2018-08-11] MEDS: DEXTROSE 5%-LACTATED RINGERS 1,000 ML IV PRN (16:14)
[2018-08-11] MEDS: FAMOTIDINE INJ/PF 20 MG/2 ML SDV IV SCH (21:05)
[2018-08-11] MEDS: TAMSULOSIN HCL 0.4 MG CAP.SR.24H PO SCH (21:59)
[2018-08-12] MEDS: DEXTROSE 5%-LACTATED RINGERS 1,000 ML IV PRN ×2 (02:20→11:38)
[2018-08-12] MEDS: HYDROCOD/ACETAMIN 7.5-325 MG/15 ML ORAL SOLN UDCUP PO PRN ×4 (02:25→20:31)
[2018-08-12 06:02] LABS: ABSOLUTE LYMPHOCYTES (AUTO) 1.7 10^3/uL (0.5-4.7); ABSOLUTE NEUT (AUTO) 4.5 10^3/uL (1.7-8.2); BASOPHILS % (AUTO) 0.1 % (0-2); EOSINOPHILS % (AUTO) 0.2 % (0-6); HEMATOCRIT 39.7 % (37.9-51.0); HEMOGLOBIN 13.1 g/dL (13.5-17.0); LYMPHOCYTES % (AUTO) 23.8 % (13-45); MEAN CORPUSCULAR HEMOGLOBIN 31.5 pg (27.0-33.4); MEAN CORPUSCULAR HGB CONC 33.1 g/dL (32.0-36.0); MEAN CORPUSCULAR VOLUME 95 fl (80-97); MONOCYTES % (AUTO) 13.9 % (3-13); PLATELET COUNT 187 10^3/uL (150-450); RED BLOOD COUNT 4.17 10^6/uL (4.35-5.55); RED CELL DISTRIBUTION WIDTH 13.4 % (11.5-14.0); TOTAL CELLS COUNTED % (AUTO) 100 %; WHITE BLOOD COUNT 7.3 10^3/uL (4.0-10.5)
[2018-08-12 06:21] LABS: ANION GAP 8 (5-19); BLOOD UREA NITROGEN 11 mg/dL (7-20); CALCIUM 8.6 mg/dL (8.4-10.2); CARBON DIOXIDE 27 mmol/L (22-30); CHLORIDE 107 mmol/L (98-107); GLUCOSE 100 mg/dL (75-110); SODIUM 142.2 mmol/L (137-145)
--- NOTE | 2018-08-12 08:32 | RADIOLOGY REPORT (SQ) ---
EXAM DESCRIPTION: CHEST SINGLE VIEW COMPLETED DATE/TIME: 08/12/2018 7:47 am REASON FOR STUDY: pain with inspiriation, s/p hiatal hernia repair COMPARISON: 07/17/2018. NUMBER OF VIEWS: One view. TECHNIQUE: Single frontal radiographic view of the chest acquired. LIMITATIONS: None. FINDINGS: LUNGS AND PLEURA: Areas of basilar subsegmental atelectasis. Small left apical pneumothor ax. No mediastinal shift. Mild subcutaneous emphysema in the lower neck. MEDIASTINUM AND HILAR STRUCTURES: No masses. Contour normal. HEART AND VASCULAR STRUCTURES: Heart normal in size. Normal vasculature. BONES: No acute findings. HARDWARE: None in the chest. OTHER: No other significant finding. IMPRESSION: 1. Patient reportedly recently status post hiatal hernia surgery. There is a small left apical pneum othorax without mediastinal shift. Basilar subsegmental atelectasis also noted. TECHNICAL DOCUMENTATION: JOB ID: [id number] [employer]- All Rights Reserved Reading location - IP/workstation name: [email or web address]
[2018-08-12] MEDS: FAMOTIDINE INJ/PF 20 MG/2 ML SDV IV SCH ×2 (09:18→21:28)
[2018-08-12] MEDS: SUCRALFATE 1 GM TABLET PO SCH ×4 (09:22→21:28)
[2018-08-12] MEDS ORDERED: PANTOPRAZOLE SODIUM 40 MG VIAL IV SCH (10:00)
--- NOTE | 2018-08-12 11:41 | PDOC PROGRESS REPORT ---
Subjective Progress Note for:: 08/12/18 Reason For Visit: K44.9 DIAPHRAGMATIC HERNIA WITHOUT OBSTRUCTION OR Physical Exam Vital Signs: Temp Pulse Resp BP Pulse Ox 98.3 F 72 16 123/75 99 08/12/18 07:47 08/12/18 07:47 08/12/18 07:47 08/12/18 07:47 08/12/18 07:47 Intake & Output 08/11/18 08/12/18 08/13/18 06:59 06:59 06:59 Intake Total 0 5120 Output Total 3970 Balance 0 1150 Weight 90 kg 90.2 kg Results Laboratory Results: 08/12/18 05:26 08/12/18 05:26 08/12/18 08/12/18 05:26 05:26 WBC 7.3 RBC 4.17 L Hgb 13.1 L Hct 39.7 MCV 95 MCH 31.5 MCHC 33.1 RDW 13.4 Plt Count 187 Seg Neutrophils % 62.0 Lymphocytes % 23.8 Monocytes % 13.9 H Eosinophils % 0.2 Basophils % 0.1 Absolute Neutrophils 4.5 Absolute Lymphocytes 1.7 Absolute Monocytes 1.0 Absolute Eosinophils 0.0 Absolute Basophils 0.0 Sodium 142.2 Potassium 4.0 Chloride 107 Carbon Dioxide 27 Anion Gap 8 BUN 11 Creatinine 0.81 Est GFR ( Amer) > 60 Est GFR (Non-Af Amer) > 60 Glucose 100 Calcium 8.6 Impressions: Chest X-Ray 08/12/18 06:00 IMPRESSION: 1. Patient reportedly recently status post hiatal hernia surgery. There is a small left apical pneumothorax without mediastinal shift. Basilar subsegmental atelectasis also noted. Assessment & Plan - Diagnosis (1) Hiatal hernia Is this a current diagnosis for this admission?: Yes (2) Gastroesophageal reflux Qualifiers: Esophagitis presence: with esophagitis Qualified Code(s): K21.0 - Gastro- esophageal reflux disease with esophagitis Is this a current diagnosis for this admission?: Yes - Plan Summary Plan Summary: This a 58-year-old male status post robot-assisted laparoscopic hiatal hernia repair with Jose L fundoplication. He is swallowing without difficulty. He still complains of Abdominal wall discomfort at his incision sites. On chest x- ray this morning, he has a small left apical pneumothorax. He has no sign of respiratory distress. He is afebrile. Continue observation for pain control and small pneumothorax on chest x-ray. Repeat chest x-ray tomorrow. Continue full liquid diet. If pneumothorax is stable and pain control is adequate, plan for discharge tomorrow.
--- NOTE | 2018-08-12 13:34 | Operative Report ---
Nonrecallable Operative Report DATE OF SURGERY: 08/11/18 PREOPERATIVE DIAGNOSIS: Severe reflux esophagitis and hiatal hernia POSTOPERATIVE DIAGNOSIS: Same as above OPERATION: 1. Robot-assisted laparoscopic hiatal hernia repair with mesh. 2. Jose L fundoplication. 3. EGD. SURGEON: MALA WOLFE 1ST BODY SHOP MECHANIC: CHIARA NG ANESTHESIA: GA TISSUE REMOVED OR ALTERED: None COMPLICATIONS: None apparent ESTIMATED BLOOD LOSS: 20 cc PROCEDURE: Drains/implants: [employer] hiatal hernia mesh. Procedure in detail: After informed consent was obtained, the patient was brought into the operating room and laid in the supine position. The area of the abdomen was prepped and draped in a normal sterile fashion. A curvilinear supraumbilical incision was created with a 15 blade scalpel. Dissection was carried through the fascia using sharp and blunt dissection. There was a small umbilical hernia defect that was used for the umbilical 12 mm trocar site. The 12 mm balloon trocar was inserted, and pneumoperitoneum was achieved. 8 mm robotic trochars were then placed under direct laparoscopic visualization in the left upper quadrant, left lateral abdomen, and right upper quadrant. A 5 mm standard laparoscopic trocar was placed in the right lateral abdomen. The liver retractor was placed onto the bed and was used to retract the left lobe of the liver anteriorly. This was done under direct laparoscopic visualization. Next the robot was brought over the patient and docked to the robotic trochars. I then assumed my position at the surgeon's console. Dissection was begun at the pars flaccida. The pars flaccida was taken down using both monopolar and bipolar electrocautery. The right domenica was identified and cleaned. The hiatal hernia was easily identified. The dissection was taken posteriorly to the confluence of the right and left crura. Dissection was then carried laterally on the left, up the left crura. After the dissection was taken maximally toward the left crura, attention was turned to taking down the short gastric arteries. The short gastric arteries were identified along the greater curvature of the stomach. These were taken down adjacent to the stomach using the robotic vessel sealing device. This was done all the way up to the left domenica of the diaphragm. Once this was completed the stomach was retracted to the right and the lateral and medial dissections were met. This was done using a mixture of monopolar electrocautery and blunt dissection. Next, a Annie drain was placed posterior to the esophagus and used for retraction purposes. I then placed a 58 [place] bougie into the esophagus. It passed easily into the esophagus. This was used as a place trujillo in order to perform the crural closure. The esophagus was retracted laterally, to the left. The hiatal hernia was completely freed, and approximately 3 cm of esophagus was found to be within the abdominal cavity. The posterior crura were then reapproximated using 2-0 Ethibond suture in [id number] fashion. 3 sutures were used. Next, a 7 x 10 cm [employer]-A hiatal hernia mesh was placed into the abdomen. It was placed over the crural repair and sutured to the crura using 2-0 Ethibond suture. Once this was sutured into place both posteriorly and anteriorly, the repair was inspected. The esophagus was found to lie in good place within the reapproximated hiatus. Next the fundoplication was undertaken. The fundus was wrapped posteriorly around the esophagus and the 58 [place] bougie. The fundus reached easily around the esophagus and bougie. The bougie was then removed from the esophagus, and sutures were placed into the fundus to create the fundoplication. The first suture incorporated the fundus and also a portion of the esophagus. 3 more sutures were placed, attaching the fundus to the anterior stomach. Once the fundoplication was completed, the posterior fundal wrap was sutured to the hiatal hernia mesh, completing the gastropexy. Attention was then turned to the performing of the EGD. I placed the flexible gastroscope into the oropharynx, and down the esophagus. The fundoplication was encountered. The Z line appeared to reside within the abdominal cavity. The scope traversed the hiatus easily. Inside the stomach, a retroflexion maneuver was performed, evaluating the hiatus. The hiatal hernia repair and fundoplication appeared to be intact, and in good order. The scope was then straightened and pulled up into the distal esophagus. The distal esophagus was evaluated for tears, perforations, and hematomas. None could be identified. Once this was confirmed, air was suctioned from the stomach and esophagus, and the scope was removed from the patient. At this time, I scrubbed back into the case. The robot was undocked from the patient. The liver retractor was removed. The 5 and 8 mm trochars were removed under direct laparoscopic visualization. The umbilical trocar was removed, and pneumoperitoneum was relieved. The umbilical defect was closed using 0 Ethibond suture in [id number] fashion. The overlying skin was closed using 4-0 Vicryl Rapide suture in subcuticular fashion. Dressings were then placed, and the procedure was concluded. All sponge, instrument, and needle counts were correct x2. Condition: Stable. Chiara Ng PA-C was scrubbed and present the entirety of the procedure. She assisted with all portions of the procedure including placement of the trochars, docking the robot, exchanging of the robotic instruments, insertion of the mesh, removing of the abdominal trochars, closure of the abdominal fascia, and closure of the skin.
[2018-08-12] MEDS ORDERED: MORPHINE SULFATE 10 MG/ML INJ IV PRN (13:38)
[2018-08-12] MEDS ORDERED: DOCUSATE SODIUM 100 MG CAPSULE PO SCH (18:00)
[2018-08-12] MEDS: TAMSULOSIN HCL 0.4 MG CAP.SR.24H PO SCH (21:28)
[2018-08-12] MEDS: KETOROLAC TROMETHAMINE INJ/PF 30 MG/1 ML SDV IV PRN (21:36)
[2018-08-13] MEDS: HYDROCOD/ACETAMIN 7.5-325 MG/15 ML ORAL SOLN UDCUP PO PRN (05:16)
[2018-08-13] MEDS: KETOROLAC TROMETHAMINE INJ/PF 30 MG/1 ML SDV IV PRN (07:28)
[2018-08-13 08:24] VITALS: BP 104/53
--- NOTE | 2018-08-13 08:28 | PDOC DISCHARGE SUMMARY ---
General - Admit/Disc Date/PCP Discharge Date: 08/13/18 - Discharge Diagnosis (1) Hiatal hernia Is this a current diagnosis for this admission?: Yes (2) Gastroesophageal reflux Is this a current diagnosis for this admission?: Yes - Additional Information Discharge Diet: As Tolerated Discharge Activity: No Lifting Over 10 Pounds Home Medications: Ropinirole HCl 0.5 mg PO DAILY 04/18/18 Rizatriptan Benzoate [Maxalt] 10 mg PO DAILY PRN 06/26/18 Topiramate [Topamax] 25 mg PO BID 06/26/18 Omeprazole 20 mg PO BID 08/04/18 History of Present Illness History of Present Illness: TERENCE SAMUEL is a 58 year old male with a long history of reflux esophagitis and a hiatal hernia. The patient was admitted to the hospital for hiatal hernia repair with Jose L fundoplication. The patient underwent the procedure, and was taken to the floor in stable condition. The patient was begun on a diet of clear liquids. Hospital Course Hospital Course: While on the floor, the patient progressed very well. He began tolerating clear liquids, ambulating, and taking oral pain medications. On postoperative day #1, the patient was found to have a very small left apical pneumothorax. The patient was observed overnight for 1 more day. Repeat chest x-ray on postoperative day #2 shows that the pneumothorax is smaller. The patient's pain is controlled with medications, he is tolerating full liquids, and at this time it is felt that he had reached maximal hospital benefit. The patient is medically fit for discharge at this time. Physical Exam Vital Signs: Temp Pulse Resp BP Pulse Ox 98.1 F 70 16 104/53 L 99 08/13/18 08:23 08/13/18 08:23 08/13/18 08:23 08/13/18 08:23 08/13/18 08:23 Intake & Output 08/12/18 08/13/18 08/14/18 06:59 06:59 06:59 Intake Total 5120 3454 Output Total 3970 1295 Balance 1150 2159 Weight 90.2 kg 90.3 kg Results Laboratory Results: 08/12/18 05:26 08/12/18 05:26 Qualifiers - * PATIENT BEING DISCHARGED WITH ANY OF THE FOLLOWING DIAGNOSIS: No Acute Heart Failure Is this a Heart Failure Patient?: No Plan Discharge Plan: Discharge home. Diet: Full liquid diet, no carbonated beverages. Activity: No lifting greater than 10 pounds x 6 weeks after surgery. Okay to shower. No tub baths or swimming pools x2 weeks. Hydrocodone/acetaminophen elixir, 10 mg p.o. every 6 hours as needed for pain. Zofran 4 mg ODT p.o. every 4 hours as needed for nausea. Follow-up with me in 10 to 14 days. Time Spent: Less than 30 Minutes
--- NOTE | 2018-08-13 08:30 | RADIOLOGY REPORT (SQ) ---
EXAM DESCRIPTION: CHEST SINGLE VIEW COMPLETED DATE/TIME: 08/13/2018 8:15 am REASON FOR STUDY: small left PTX after hiatal hernia repair COMPARISON: AP chest 08/12/2018, 07/17/2018 CT chest 09/05/2017 EXAM PARAMETERS: NUMBER OF VIEWS: One view. TECHNIQUE: Single frontal radiographic view of the chest acquired. RADIATION DOSE: NA LIMITATIONS: None. FINDINGS: LUNGS AND PLEURA: There is bandlike atelectasis in the left lower lobe, and trace left api asael pneumothorax unchanged from 08/12/2018, 721 hours. Trace left pleural effusion Right lung clear. No right pleural effusion or pneumothorax. MEDIASTINUM AND HILAR STRUCTURES: No masses. Contour normal. HEART AND VASCULAR STRUCTURES: Heart normal in size. Normal vasculature. BONES: No acute findings. HARDWARE: None in the chest. OTHER: No other significant finding. IMPRESSION: Stable left apical pneumothorax Stable with basilar atelectasis Trace left pleural fluid TECHNICAL DOCUMENTATION: JOB ID: [id number] [employer]- All Rights Reserved Reading location - IP/workstation name: [email or web address]
[2018-08-13] MEDS: SUCRALFATE 1 GM TABLET PO SCH (09:50)
== END 2018-08-13 09:51 | disposition home or self-care (01) ==
LOC: OROUT 05:34 → 4S 12:23 → 5TH 13:24 → OROUT 13:24 → 4S 13:25 → 5TH 13:25 → 4S 08-13 09:51 → OROUT 08-13 09:51
PROVIDERS: ADMIT Surgery; ATTEND Surgery
PROC: 8E0W4CZ Robotic Assisted Procedure of Trunk Region, Percutaneous Endoscopic Approach (ICD-10-PCS; 2018-08-11)
PROC: 0DV44ZZ Restriction of Esophagogastric Junction, Percutaneous Endoscopic Approach (ICD-10-PCS; principal; 2018-08-11 07:30)
DX: K44.9 Diaphragmatic hernia without obstruction or gangrene (principal); K21.0 Gastro-esophageal reflux disease with esophagitis; J95.811 Postprocedural pneumothorax; J95.89 Other postprocedural complications and disorders of respiratory system, not elsewhere classified; J98.11 Atelectasis; Y83.8 Other surgical procedures as the cause of abnormal reaction of the patient, or of later complication, without mention of misadventure at the time of the procedure; Z79.899 Other long term (current) drug therapy; K27.9 Peptic ulcer, site unspecified, unspecified as acute or chronic, without hemorrhage or perforation; G43.909 Migraine, unspecified, not intractable, without status migrainosus
CPT/HCPCS: 43280; S2900; 36415; 71045; 790; 80048; 85025; 86850; 86900; 86901; 94640; 94799; C1781; G0378; J0131; J0330; J0694; J1100; J1885; J2001; J2250; J2405; J2704; J2710; J3010; J3490; J7060; J7121; S0028; S0164